=== PATIENT | female | born 1955 | race Caucasian/White ===

== ENCOUNTER 2025-01-25 17:27 | Emergency (ER) | payer MEDICARE, OTHER, MEDICAID ==
[~2025-01-25] VITALS: Ht 162.6 cm; Wt 98.4 kg
[~2025-01-25 17:27] MED LIST: ALBU6.7H14 INH
[2025-01-25 17:33] VITALS: TEMP 97.8
--- NOTE | 2025-01-25 17:49 | ELECTROCARDIOGRAPH REPORT ---
[facility] Test Date: 2025-01-25 Test Time: 17:48:14 Pat Name: KAY VERA Department: [facility]-ER Patient ID: [facility]-[id number] Room: Gender: F Measurement Operator: : 1955 Requested By: GRACIELA KHOURY Order Number: [id number] Reading MD: Measurements Intervals [place] Rate: 70 P: 24 IA: 182 QRS: -26 QRSD: 98 T: 27 QT: 395 QTc: 427 Interpretive Statements Sinus rhythm Borderline left axis deviation Abnormal R-wave progression, early transition Please click the below link to view image of tracing.
--- NOTE | 2025-01-25 18:21 | RADIOLOGY REPORT ---
CHEST RADIOGRAPH Indication: CP Technique: Single frontal view of the chest was obtained Comparison: None FINDINGS: Lines and Tubes: None Lungs: No focal consolidation. Pleura: No effusion. No pneumothorax. Cardiomediastinal contours: Unremarkable Bones: No acute osseous abnormality. IMPRESSION: No acute cardiopulmonary disease.
--- NOTE | 2025-01-25 18:24 | Physician Documentation ---
History of Present Illness ~ Chief Complaint: Syncope Stated Complaint: SYNCOPE Time Seen by MD: 17:52 Primary Medical Doctor: NONE Source: patient Mode of Arrival: EMS, Stretcher Exam Limitations: no limitations HPI 69-year-old female with syncopal episode that occurred a few hours ago. 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 She was by herself and thus no one witnessed what happened but she believes that she passed out. she reports she felt really sweaty but did not feel nauseated. She was not confu sed. She got her phone in tried to call someone to come help her but no one answered so she states she then walked about [address] into the house. When she got into the house she laid down and when she sat up she kept feeling like she was going to pass out again so she laid back down. Her son was at the house when she arrived and called an ambulance. She states by the time the ambulance got there she started to feel little bit better stating that the dizziness that she was feeling in the unsteadiness had almost resolved. She denies ever experiencing chest pain, shortness of breath, palpitations, headache. No prior syncopal episodes. Medication Reconciliation Allergies: Coded Allergies: No Known Allergies (Unverified , 01/25/25) Scheduled PRN Albuterol Sulfate (Proventil Hfa), 2 PUFFS INH QID PRN for COUGH OR SOB Past Medical History Past Medical History: No Pertinent History Past Surgical History: , orthopedic surgeries Alcohol Use: None Drug Use: none Lives In: Home Review of Systems All Other Systems at this time: Reviewed and Negative Physical Exam Vital Signs: Temperature: 97.8, Heart Rate: 73, Respiratory Rate: 16, BP: 118/52, Pulse Oximetry: 98, Weight: 98.400 Oxygen Flow Rate: 0 Physical Exam GENERAL: Alert, no acute distress. HEENT: NCAT, EOMI, PERRL, normal oropharynx, moist oral mucosa. NECK: Supple, trachea midline. CARDIAC: Regular rate and rhythm, no murmurs, rubs, or gallops. Equal distal pulses. No lower extremity edema, cap refill less than 2 seconds. RESPIRATORY: Equal breath sounds, clear to auscultation bilaterally, no respiratory distress. GASTROINTESTINAL: Non distended, soft, nontender, No guarding or rebound. MUSCULOSKELETAL: Tenderness over right knee, active range motion of knee is decreased due to pain. NEUROLOGICAL: Awake, alert, and oriented x 3. CN 2-12 intact. SKIN: Warm/dry, no pallor, no rash. PSYCH: Alert and appropriate. Affect congruent with mood. Speech is clear. Good eye contact. Progress Progress Note FINDINGS/IMPRESSION: There is no evidence of acute fracture or dislocation. There is severe lateral compartment joint space narrowing with moderate osteophytic changes. Mild medial knee compartment with [id number] patellofemoral compartment joint space narrowing and osteophytic bony changes. Nonspecific well corticated 1.3 x 1.1 cm density overlying the lateral femoral condyle Questionable small suprapatellar effusion. Nonspecific 3 mm hypodensity over the anterior proximal lower leg which may represent nonspecific soft tissue calcification. Results/Orders Reviewed/noted all lab results: Yes Results/Orders Vital Signs 01/25/25 01/25/25 17:33 18:12 Temp 97.8 Pulse 73 Resp 13 16 B/P (MAP) 118/52 Pulse Ox 98 O2 Flow Rate 0 Laboratory Tests Test 01/25/25 18:13 White Blood Count 7.7 Red Blood Count 4.31 Hemoglobin 12.7 Hematocrit 38.3 Mean Corpuscular Volume 89.0 Mean Corpuscular Hemoglobin 29.5 Mean Corpuscular Hemoglobin Concent 33.1 Red Cell Distribution Width 14.0 Platelet Count 237 Mean Platelet Volume 8.0 Neutrophils (%) (Auto) 69.4 Lymphocytes (%) (Auto) 21.6 Monocytes (%) (Auto) 7.0 Eosinophils (%) (Auto) 1.3 Basophils (%) (Auto) 0.7 Neutrophils # (Auto) 5.3 Lymphocytes # (Auto) 1.7 Monocytes # (Auto) 0.5 Eosinophils # (Auto) 0.1 Basophils # (Auto) 0.1 CBC Comment Sodium Level 142 Potassium Level 3.4 L Chloride Level 110 H Carbon Dioxide Level 22.3 L Anion Gap 10 Blood Urea Nitrogen 26 H Creatinine 0.57 Estimated GFR/1.73 m2 > 90 BUN/Creatinine Ratio 45.6 H Glucose Level 87 Calcium Level 8.4 L Troponin I High Sensitivity 6 Pro-B-Type Natriuretic Peptide 41 Albumin 3.5 Chemistry Comments EKG/XRAY/CT/US/VASC/MRI Chest X-Ray : Interpreted By: radiologist Views: 1 VIEW Lungs: normal Mediastinum: normal Ribs/Bones: normal Abdomen: normal Impression: no acute disease Medical Decision Making Differential Dx:Considerations: Include: anemia, CVA, cerebral occlusion, cer ebral thrombosis, dehydration, dysrhythmia, electrolyte disorder, encephalopathy, hypoglycemia, hypovolemia, labyrinthitis, Meniere's disease, myocardial infarction, pulmonary embolus, TIA, vasovagal, VBI, vertigo central, vertigo peripheral, vestibular neuronitis, other Additional Information Patient had syncopal episode while unloading hay. She believes her symptoms occurred due to heat; however, patient was only outside for 30minutes when symptoms occurred and has lived in [place] for over 30years. Considering this syncopal episode occurred with exertion I explained to her that it is cardiac until proven otherwise. PE is also in the differential; however, patient has no SOB or risk factors-not on HRT and no periods of inactivity. Recommendation is admission considering age with unknown etiology of syncope. Departure Time of Disposition: 18:57 Disposition: 01 HOME / SELF CARE / HOMELESS Admitted to Inpatient Unit: to hospitalist Impression: Primary Impression: Syncope Qualified Codes: R55 - Syncope and collapse Condition: Fair Discharge Instructions: Syncope, Adult Referrals: NO PRIMARY CARE PROVIDER (PCP) Education Educated: Patient Educated regarding: diagnosis, treatment, need for follow up Signature Scribe Signature: x Attestation: VIRGILIO Alfred Jan 25, 2025 18:24
--- NOTE | 2025-01-25 18:25 | RADIOLOGY REPORT ---
CLINICAL INDICATION: KNEE PAIN RIGHT TECHNIQUE: 5 radiographic views of the right knee were obtained. Comparison: None FINDINGS/IMPRESSION: There is no evidence of acute fracture or dislocation. There is severe lateral compartment joint space narrowing with moderate osteophytic changes. Mild me dial knee compartment with [id number]-cz-pidrjvsr patellofemoral compartment joint space narrowing and oste ophytic bony changes. Nonspecific well corticated 1.3 x 1.1 cm density overlying the lateral femoral condyle Questionable small suprapatellar effusion. Nonspecific 3 mm hypodensity over the anterior proximal lo wer leg which may represent nonspecific soft tissue calcification.
[2025-01-25 18:30] LABS: MEAN PLATELET VOLUME 8.0 FL (7.4-10.4); RED CELL DISTRIBUTION WIDTH 14.0 % (11.5-14.5)
[2025-01-25 18:41] LABS: CREATININE 0.57 MG/DL (0.40-0.90); PRO BRAIN NATRIURETIC PEPTIDE 41 PG/ML (0-125); TOTAL CARBON DIOXIDE 22.3 MMOL/L (24-32); eCRCL 83 ML/MIN; eGFR > 90 ML/MIN
[2025-01-25 19:15] VITALS: BP 121/50; PULSE 67; RESP 16; O2SAT 99
== END 2025-01-25 19:17 | disposition home or self-care (01) ==
LOC: ER 17:28
DX: R55 Syncope and collapse (principal); M25.561 Pain in right knee; R06.02 Shortness of breath
CPT/HCPCS: 36415; 71045; 73564; 80048; 83880; 84484; 85025; 93005; 99285

== ENCOUNTER 2025-05-27 14:09 | Emergency (ER) | payer MEDICARE, OTHER, MEDICAID ==
[~2025-05-27] VITALS: Ht 162.6 cm; Wt 92.7 kg
[2025-05-27 14:16] VITALS: TEMP 98.1
[2025-05-27] MEDS: ketorolac trometh 30MG/ML vial 30 MG/ML VIAL IM ONE (16:51)
[2025-05-27] MEDS ORDERED: CYCL-1 PO (17:58)
--- NOTE | 2025-05-27 17:59 | Physician Documentation ---
History of Present Illness ~ Chief Complaint: Back Pain Stated Complaint: BACK PAIN Time Seen by MD: 14:48 Primary Medical Doctor: NONE HPI 69-year-old female presented to the ED with acute onset low back pain consistent with lumbosacral strain. No history of trauma, IV drug use, malignancy, or other red flag symptoms was elicited. Neurologic exam was unremarkable, with no evide nce of focal deficits, saddle anesthesia, or bowel/bladder dysfunction. No fever, chills, or constitutional symptoms were reported. Medication Reconciliation Allergies: Coded Allergies: No Known Allergies (Unverified , 01/25/25) Scheduled PRN Albuterol Sulfate (Proventil Hfa), 2 PUFFS INH QID PRN for COUGH OR SOB Past Medical History Past Medical History: No Pertinent History Past Surgical History: , orthopedic surgeries Alcohol Use: None Drug Use: none Lives In: Home Review of Systems ROS As stated above in the HPI, otherwise all systems are reviewed and negative. Physical Exam Physical Exam Vital Signs: Temperature: 98.1, Source: Temporal, Heart Rate: 64, Respiratory Rate: 16, BP: 123/69, Pulse Oximetry: 95, Weight: 92.700 Oxygen Flow Rate: 0 Physical Exam VITALS: Reviewed and as above. GENERAL: Alert, no apparent distress. HEENT: Normocephalic, atraumatic, PERRL, EOMI, dry mucosa, no erythema RESPIRATORY: Lungs clear, normal breath sounds, no respiratory distress. CHEST: No accessory muscle use, no retractions CV: Regular rate, rhythm, no edema, no murmur, No: JVD GI: Soft, non-tender, bowels sounds present, no rebound, guarding, or rigidity BACK: No CVA tenderness, or swelling MUSCULOSKELETAL No deformities, no edema, point tenderness to right lower simple lumbosacral region during examination, positive straight leg raise during examination. SKIN: Warm and dry, no rash NEURO: Oriented x4, No motor or sensory deficit PSYCH: Normal mood and affect, no agitation Progress Results/Orders Results/Orders Completed Orders - MARIALUISA VILLASENOR Ketorolac Trometh 30mg/Ml Vial (Toradol (05/27/25 15:15) Methylprednisolone Sod Succ (Solumedrol (05/27/25 16:50) Medications Received in ER Medications (Trade) Dose Ordered Sig/Leslie Route PRN Reason Start Time Stop Time Status Last Admin Dose Admin (Toradol inj. 30mg/ml) 30 mg ONCE ONCE IM 05/27/25 15:15 05/27/25 15:16 DC 05/27/25 16:51 30 MG (SoluMEDROL 125mg inj) 125 mg ONCE ONCE IM 05/27/25 16:50 05/27/25 16:51 DC 05/27/25 16:52 125 MG Vital Signs 05/27/25 05/27/25 14:16 16:51 Temp 98.1 Pulse 64 Resp 18 16 B/P (MAP) 123/69 Pulse Ox 95 O2 Flow Rate 0 Medical Decision Making Additional information obtaine: other Findings 69-year-old female presented to the ED with acute onset low back pain consistent with lumbosacral strain. No history of trauma, IV drug use, malignancy, or other red flag symptoms was elicited. Neurologic exam was unremarkable, with no evidence of focal deficits, saddle anesthesia, or bowel/bladder dysfunction. No fever, chills, or constitutional symptoms were reported. In the ED, the patient received Toradol and Solu-Medrol injections for pain control, with partial symptomatic improvement. She was prescribed Flexeril 10 mg PO qHS for 5 days, with strict instructions regarding sedation risk and avoidance of activities requiring alertness. The patient was counseled on the importance of monitoring for red flag symptoms, including new or worsening neurologic deficits, incontinence, numbness or tingling in the lower extremities, fever, chills, or other concerning symptoms, and to return to the ED if these develop. Given the absence of red flags and stable exam, no imaging or laboratory studies were indicated per current guidelines. The patient was advised to follow up with her primary care provider for ongoing management and to pursue gradual return to activity as tolerated. Prognosis for functional recovery is favorable with conservative management, but persistent or worsening symptoms warrant re- evaluation. Differential Dx:Considerations: Musculoskeletal pain, Other Departure Disposition: 01 HOME / SELF CARE / HOMELESS Impression: Primary Impression: Lumbosacral strain Condition: Stable Discharge Instructions: Lumbosacral Strain Additional Instructions: You were seen in the emergency department today for low back pain (lumbosacral strain). You received medications for pain and inflammation, and you have a prescription for Flexeril (cyclobenzaprine) 10 mg to take at bedtime for up to 5 days. Please follow these instructions to help with your recovery: Activity: Stay as active as you can. Avoid bed rest. Gentle movement and returning to your normal activities as tolerated will help you recover faster. You may need to avoid heavy lifting or activities that make your pain much worse, but try not to stay in bed or be inactive for long periods. Medications: Take Flexeril only as prescribed, at night before bed. This medication can cause drowsiness, so do not drive or operate heavy machinery after taking it. If you have any side effects such as confusion, severe drowsine ss, or trouble breathing, stop the medication and seek medical attention. You may use [id number] pain relievers like ibuprofen or acetaminophen if needed, following package instructions and your doctors advice. Self-care: Applying a heating pad or warm pack to your lower back may help relieve discomfort. Gentle stretching or walking is encouraged if it does not make your pain worse. Follow-up: Make an appointment with your primary care provider for further evaluation and management. When to return to the emergency department: Come back right away if you have any of the following: New or worsening numbness or tingling in your legs Weakness in your legs Loss of control of your bladder or bowels (incontinence) Fever, chills, or unexplained weight loss Severe or worsening pain that does not improve with medication Nausea, vomiting, diarrhea, or any other concerning symptoms Most people with low back strain improve within a few weeks. Staying active and following these instructions will help you recover. If your symptoms do not improve or get worse, please contact your doctor. Referrals: NO PRIMARY CARE PROVIDER (PCP) Prescriptions Cyclobenzaprine* (Cyclobenzaprine*) 10 Mg Tablet 1 TAB PO HS for muscle spasms for 10 Days, #10 TAB 0 Refills Prov: MARIALUISA VILLASENOR 05/27/25 Education Educated: Patient Educated regarding: diagnosis, treatment, need for follow up Signature Scribe Signature: A Attestation: Scribed for Marialuisa Villasenor by SHANTE Layton . 05/27/25 17:59 MARIALUISA VILLASENOR May 27, 2025 17:59
[2025-05-27 18:01] VITALS: BP 116/69; PULSE 63; RESP 16; O2SAT 98
== END 2025-05-27 18:06 | disposition home or self-care (01) ==
LOC: ER 14:10
DX: S39.012A Strain of muscle, fascia and tendon of lower back, initial encounter (principal); Z98.890 Other specified postprocedural states; X58.XXXA Exposure to other specified factors, initial encounter; Y93.89 Activity, other specified; Y92.89 Other specified places as the place of occurrence of the external cause; Y99.8 Other external cause status
CPT/HCPCS: 96372; 99284; J1885; J2919